=== PATIENT | female | born 1965 | race African-American/Black ===

== ENCOUNTER 2024-08-28 15:10 | Emergency (ER) | payer MEDICAID, MEDICARE ==
[~2024-08-28] VITALS: Ht 167.6 cm; Wt 91.0 kg
[~2024-08-28 15:10] MED LIST: LISINOPRIL
[2024-08-28 15:12] VITALS: O2SAT 99
[2024-08-28] MEDS: SODIUM CHLORIDE 0.9% 1,000 ML IV ONE (15:30)
[2024-08-28] MEDS: ONDANSETRON HCL 4MG/2ML INJ IV ONE (15:49)
[2024-08-28] MEDS: FAMOTIDINE 20MG/2ML VIAL IV ONE ×2 (15:49→16:20)
[2024-08-28 15:58] LABS: BASOPHILS % 0.4 % (0.0-2.0); HEMATOCRIT. 39.5 % (36.0-48.0); HEMOGLOBIN. 13.4 g/dL (12.0-16.0); LYMPHOCYTES % 15.9 % (20.0-50.0); MEAN CORPUSCULAR HEMOGLOBIN 30.4 pg (28.0-32.0); MEAN CORPUSCULAR VOLUME 89.4 fL (81.0-99.0); MEAN PLATELET VOLUME 7.9 fl (7.4-10.4); MONOCYTES % 2.5 % (2.0-8.0); NEUTROPHILS % 81.2 % (40.0-76.0); PLATELET 329 x1000/uL (130-400); RED BLOOD CELL COUNT 4.42 mill/uL (4.2-5.4); RED CELL DISTRIBUTION WIDTH 13.2 % (11.6-14.6); WHITE BLOOD COUNT 10.8 x1000/uL (4.5-11.0)
[2024-08-28 16:03] LABS: CHLORIDE 106 mEq/L (98-107); POTASSIUM 3.8 mEq/L (3.5-5.1); SODIUM 140 mEq/L (136-145)
[2024-08-28 16:04] LABS: CALCIUM 10.9 mg/dL (8.7-10.4); CARBON DIOXIDE 26 mEq/L (21-32)
[2024-08-28 16:09] LABS: CREATININE 1.1 mg/dL (0.6-1.0); GLUCOSE 125 mg/dL (70-105); TROPONIN I HIGH SENSITIVITY 5 ng/L (3.0-34); UREA NITROGEN BLOOD 15 mg/dL (9-23)
[2024-08-28 16:11] LABS: ALANINE AMINOTRANSFERASE < 7 IU/L (10-49); ALBUMIN 4.8 g/dL (3.2-4.8); ASPARTATE AMINOTRANSFERASE 15 IU/L (<34); BILIRUBIN DIRECT 0.1 mg/dL (<=3.0); BILIRUBIN TOTAL 0.5 mg/dL (0.1-1.0); PROTEIN TOTAL 8.2 g/dL (6.0-8.3)
[2024-08-28] MEDS: METOCLOPRAMIDE HCL 10MG/2ML VIAL IV ONE (16:20)
[2024-08-28] MEDS: MAGNESIUM/ALUMINUM HYDROXIDE/SIMETHICONE 30ML UDC PO ONE (16:20)
[2024-08-28] MEDS: KETOROLAC 30MG/ML VIAL IV ONE (16:20)
[2024-08-28] MEDS: ACETAMINOPHEN 1000MG/100ML 100 ML IV ONE (16:20)
[2024-08-28] MEDS: MORPHINE SULFATE 2 MG/ML INJ (NOT FOR IM USE) IV NR (17:13)
[2024-08-28 17:51] LABS: TROPONIN I HIGH SENSITIVITY 6 ng/L (3.0-34)
[2024-08-28 18:45] VITALS: BP 157/76; PULSE 85; RESP 18; TEMP 36.83628; O2SAT 99
== END 2024-08-28 19:06 | disposition home or self-care (01) ==
LOC: ER 15:10
DX: K29.70 Gastritis, unspecified, without bleeding (principal); Z88.0 Allergy status to penicillin; I10 Essential (primary) hypertension
CPT/HCPCS: 99284; 96375; 96365; 71045; 96361; 80076; 80048; 83690; 85025; 84484; 36415; J3490; J1885; J2765; J2405; J2270; J7030; J0131